=== PATIENT | female | born 1995 | race Hispanic/Latino ===

== ENCOUNTER 2024-12-23 07:37 | Inpatient (IN) | payer OTHER, SELFPAY ==
[2024-12-23] VITALS (59 sets, daily range): BP systolic 93–216; BP diastolic 52–142; PULSE 68–111; RESP 14–18; TEMP 36.6–37.4; O2SAT 97–100; BMI 33.1
[2024-12-23 07:51] LABS: ROM Internal Control Test YES-OK TO RESULT pt. (Internal QC)
[2024-12-23 07:52] LABS: ROM Patient Test POSITIVE (Negative); Record Kit Lot#, ROM+ K3358
[2024-12-23] MEDS: Lactated Ringers 1,000 ML 50 ML IV (08:25)
--- NOTE | 2024-12-23 08:35 | HP.PCM.OB_ITS ---
HPI - General General Date of Admission: 12/23/24 HPI Narrative ABDIAZIZ CINTRON, is a 29 F @ 40.1 weeks who presents c/o SROM and Ctx- made cervical change during observation from 1.5-3cm- felt fluid leaking around 7:05 am- rom plus was positive for rupture. PFSH PFSH Home Medications ?Medication ?Instructions ?Recorded ?Last Taken ?Type vit no.95-ferrous 1 tab PO DAILY 12/23/24 Unk nown History fumarate 28 mg-folic acid 800 mcg tablet () Allergy/AdvReac Type Severity Reaction Status Date / Time No Known Allergies Allergy Verified 12/23/24 05:20 Social History Smoking Status: Never smoker History Elective abortions Hx Para 0 Spontaneous abortions Hx # Term Pregnancies Ectopic pregnancies Hx # Pregnancies Multiple births # of living children NST FHR Rate Baby A Baseline: 135 Variability:: Moderate Accelerations:: 15 x 15 Decelerations:: None NST Reactive:: Yes FHR Category:: Category I Uterine Activity:: 2-5 min Vital Signs Vital Signs Vital Signs: 12/23/24 05:18 12/23/24 05:18 12/23/24 05:21 Temperature Temperature Source Temporal Pulse Rate 91 Respiratory Rate Blood Pressure BP Systolic BP Diastolic Pulse Ox 99 12/23/24 05:21 12/23/24 05:21 12/23/24 05:22 Temperature 98.5 F Temperature Source Pulse Rate Respiratory Rate 14 Blood Pressure 110/66 BP Systolic 110 BP Diastolic 66 Pulse Ox 12/23/24 05:22 12/23/24 07:18 12/23/24 07:18 Temperature Temperature Source Pulse Rate 91 87 Respiratory Rate Blood Pressure 145/67 H BP Systolic 145 BP Diastolic 67 Pulse Ox 12/23/24 07:18 Temperature Temperature Source Pulse Rate Respiratory Rate Blood Pressure BP Systolic BP Diastolic Pulse Ox 98 Weight Weight: 67.132 kg Body Mass Index (BMI) 33.1 Physical Exam Narrative VE: 3/70/-3 forebag ruptured- light meconium Const alert and oriented x3 General Appearance: cooperative HEENT normocephalic GI GI Narrative: Gravid, non tender to palpation. OB / External & Speculum: external exam normal Extremity normal to inspection Skin no rashes or lesions noted Neuro oriented x3 and CN's II-XII intact bilaterally Psych Appearance: grossly normal Labs Labs Labs: No Data to Display Assessment & Plan (1) 40 weeks gestation of : (2) SROM (spontaneous rupture of membranes): (3) Meconium in amniotic fluid affecting management of mother in third trimest er: PLAN: Plan Admit to L&D Montior FHR/TOCO Epidural if requested for pain- planning unmedicated Monitor VS Anticipate meconium fluid- notify peds for delivery pitocin if indicated
[2024-12-23 08:56] LABS: Absolute Lymphocyte Count 2.76 X10^3/uL (0.83-4.51); Absolute Neutrophil Count 9.1 X10^3/uL (2.0-7.7); Basophil# 0.05 X10^3/uL; Basophil% 0.4 % (0-1); Eosinophil# 0.43 X10^3/uL; Eosinophils% 3.4 % (0-5); Hematocrit 37.6 % (37-47); Hemoglobin 12.8 g/dL (12.0-15.0); Lymphocyte # 2.76 X10^3/ul (0.83-4.51); Lymphocyte % 21.6 % (19-41); Mean Corpuscular Hgb 30.3 pg (27.0-32.0); Mean Corpuscular Volume 88.9 fL (81-99); Mean Platelet Vol. 9.3 fl (6.2-12.0); Monocyte# 0.41 X10^3/uL; Monocyte% 3.2 % (0-10); NRBC Flagged by Analyzer 0 % (0-5); Neutrophil # 9.06 X10^3/uL (2.7-7.7); Platelet Count 240 K/mm3 (150-450); RBC Distribution Width CV 13.6 % (11.6-14.6); RBC Distribution Width SD 44.2 fl (35.1-43.9); Red Blood Count 4.23 M/mm3 (4.2-5.4); White Blood Count 12.8 K/mm3 (4.4-11.0)
[2024-12-23] MEDS: Oxytocin 15 Units/NS 250ml 15 UNITS/250 ML IV.SOLN 2 UNITS IV (09:49)
[2024-12-23 10:01] LABS: Syphilis Antibodies Nonreactive (Nonreactive)
[2024-12-23] MEDS: Lactated Ringers 1,000 ML 999 ML IV (11:59)
[2024-12-23] MEDS: fentaNYL-bupivacaine (epidural) 100 ML BAG EPIDURAL (12:46)
--- NOTE | 2024-12-23 16:25 | OB.VAGDELI_ITS ---
Assessment & Plan (1) (normal spontaneous vaginal delivery): (2) Meconium stained amniotic fluid, delivered, current hospitalization: (3) First degree perineal laceration: (4) Lactating mother: Maternal Data Information CARL Calculator Estimated Delivery Date Method Current WG Current Estimate 12/22/24 Manual 40w 1d Final CARL: 12/22/24 Vaginal Delivery Maternal Presentation Maternal Presentation: Active Labor and Spontaneous Rupture of Membranes Vaginal Delivery Information Procedure Performed: Spontaneous Vaginal Delivery Date of Procedure: 12/23/24 Pre-Procedure Diagnosis: Active labor at term, Spontaneous Rupture of Membranes Post-Procedure Diagnosis: , meconium stained fluid, 1st degree perineal laceration Type of anesthesia: Epidural Estimated Blood Loss: 500ml Time of Delivery: 15:54 Findings Description of procedure: Progressed to complete with urge to push. Epidural for pain management. of viable male infant over first degree perineal laceration . APGARS 8,9 respectively. head delivered with body immediately forthcoming. Placed on maternal abdomen, strong cry. Mouth and nares suctioned for secretions, MEC, merchandise planner and respiratory team present at bedside for . Pitocin started for active 3rd stage management. Cord doubly clamped and cut by FOB after pulsations ceased, delayed cord clamping. Placenta delivered intact via dash, 3 vessel cord intact. Perineum inspected and revealed first degree perineal laceration. Repaired with 3.0 vicryl rapide and epidural Fundus firm and hemostasis achieved. EBL 500ml. Mom and baby stable, planning to breastfeed. Family bonding well. notified of delivery. Moroccan speaking, family at bedside for interpretor per patient request Presentation: Vertex Amniotic Membrane Rupture Type: Spontaneous (AROM of forebag, MEC) Amniotic Fluid Description: Moderate meconium Placental Delivery Description: Spontaneous Placenta Disposition: Sent to Pathology Specimen collected: No Cord Vessel Description: 3 Vessels Cord Entanglement: None A Gender: Male (1 minute): 8 (5 minute): 9 Delayed Cord Clamping: Yes Psych Therapist allergy and immunology chief: No Post Vaginal Deli Medications given after delivery: IV Pitocin Episiotomy Description: None Laceration: Perineal Extension/lac and 1st degree Complication Complications: No
[2024-12-23] MEDS: Oxytocin 15 Units/NS 250ml 15 UNITS/250 ML IV.SOLN 83 UNITS IV (16:34)
--- NOTE | 2024-12-23 16:54 | PLAC_PTH ---
PATIENT: ABDIAZIZ DURAN LOC: [facility] U#:[id number] AGE/SX: 29/F ROOM: WP015 RE12/23/[address]: Hortencia Osuna CNM : 1995 BED: 1 DIS: 12/24/2024 SPEC #: [id number] RECD: 12/23/24 17:55 STATUS: ROMA REAranza #: [id number] BETSY: 12/23/24 16:[address]: Hortencia Osuna DEPT: SURGICAL PATHOLOGY RECD BY: Luis A Wood ENTERED: 12/26/24 08:38 SP TYPE: PLACENTA OTHR DR: No Primary Care Phys Tissues: A - Placenta, NOS Procedures: Surgery Specimen Level V HEADER OPERATION: Delivery PRE-OP DIAGNOSIS: Meconium stained fluid, marginal insertion TISSUE SUBMITTED: A- Placenta MICROSCOPIC DIAGNOSIS A. Placenta, vaginal delivery: * Marginally inserted, furcated, and trivascular umbilical cord without active inflammation * Marginally inserted membranes with increased number of pigmented macrophages, consistent with meconium and without active inflammation * Mature (third trimester) placenta without active inflammation and with increased number of pigmented macrophages in the surface, consistent with meconium, and with subchorionic fibrin deposition involving ~15% of the surface MICROSCOPIC DESCRIPTION Slides are reviewed. GROSS DESCRIPTION A.? Received in formalin labeled with the patient's name and date of is a 388 g, 17.5 x 15.8 x 2.8 cm irregular placental disc.? The membranes are thompson-green and markedly edematous, inserting marginally with a point of rupture located approximately 6.5 cm from the disc edge.? The trivascular and focally compressed umbilical cord measures 26.7 cm in length x 1.0-1.5 cm in diameter and has a marginal, furcate insertion.? The surface is blue-green and edematous with focal subchorionic fibrin (<15%).? The maternal surface is red to light brown with a focally torn and frayed appearance and loosely adherent blood clot. Sectioning reveals red violaceous parenchyma with focal fibrin and hemorrhage (approximately 15%). Associate Loan Officer sections are submitted as follows: A1: Membrane rollA2: Umbilical cordA3: PlacentaA4: Placenta with fibrin SC 12/26/2024 CPT:34531
[2024-12-23 17:57] LABS: Pathology Specimen OB SEE PATHOLOGY REPORT
--- NOTE | 2024-12-23 18:58 | NURSING ---
epidural catheter removed and blue tip intact
[2024-12-24] VITALS (9 sets, daily range): BP systolic 103–120; BP diastolic 56–74; PULSE 67–95; RESP 15–16; TEMP 36.4–36.9; O2SAT 92–99
[2024-12-24 06:37] LABS: Absolute Lymphocyte Count 3.18 X10^3/uL (0.83-4.51); Basophil# 0.05 X10^3/uL; Basophil% 0.3 % (0-1); Eosinophil# 0.19 X10^3/uL; Hematocrit 35.3 % (37-47); Hemoglobin 12.2 g/dL (12.0-15.0); Lymphocyte # 3.18 X10^3/ul (0.83-4.51); Lymphocyte % 17.5 % (19-41); Mean Corp Hgb Conc 34.6 g/dL (32-36); Mean Corpuscular Hgb 30.7 pg (27.0-32.0); Mean Corpuscular Volume 88.7 fL (81-99); Mean Platelet Vol. 8.7 fl (6.2-12.0); Monocyte# 0.64 X10^3/uL; Monocyte% 3.5 % (0-10); NRBC Flagged by Analyzer 0 % (0-5); Neutrophil # 13.99 X10^3/uL (2.7-7.7); Neutrophil % 77.2 % (47-70); Platelet Count 214 K/mm3 (150-450); RBC Distribution Width CV 13.5 % (11.6-14.6); RBC Distribution Width SD 44.2 fl (35.1-43.9); Red Blood Count 3.98 M/mm3 (4.2-5.4); White Blood Count 18.1 K/mm3 (4.4-11.0)
--- NOTE | 2024-12-24 10:25 | NURSING ---
while using automotive parts counter person line discussed and maternal self care, procedures to be done today, , follow up ped picked, pt wants MMR and Nexplanon, pt desires to go home tonight after testing. Yoder teaching done- bath, cord care, temp.: spent time on certificate clarifying questions, into see - talked about tongue tie and sore nipple.
--- NOTE | 2024-12-24 11:44 | NURSING ---
linseed oil refiner service used for lunch and dinner order, checking certificate, and explaining MMR immunization
[2024-12-24] MEDS: MEASLES,MUMPS,RUBELLA VACC/PF 0.5 ML SC (12:02)
--- NOTE | 2024-12-24 12:02 | PCM.PN.OB ---
Subjective Subjective Doing well per patient and nursing staff. Ambulating and taking PO without difficulty. Voiding and passing flatus. Pain controlled. , services for assistance. Denies headache, visual changes, chest pain, shortness of breath, leg pain or increased bleeding. Lochia normal. Objective Data Objective Data Vital Signs: Vital Signs Temp Pulse Resp BP Pulse Ox O2 Del Method 98.2 F 93 16 120/74 92 Room Air 12/24/24 08:55 12/24/24 11:59 12/24/24 08:55 12/24/24 11:59 12/24/24 11:59 12/24/24 08:55 Oxygen Delivery Method Room Air Weight: 148 lb Body Mass Index (BMI) 33.1 Intake & Output: Intake and Output for Last 24 Hours 12/22/24 12/23/24 12/24/24 23:59 23:59 23:59 Intake Total 2443.64 / 2443.64 Output Total 1900 / 1900 Balance 543.64 / 543.64 Lab / Micro Data 12/24/24 06:30 Labs: Laboratory Results - last 24 hr 12/24/24 06:30: WBC 18.1 H, RBC 3.98 L, Hgb 12.2, Hct 35.3 L, MCV 88.7, MCH 30.7, MCHC 34.6, RDW Std Deviation 44.2 H, RDW Coeff of Corie 13.5, Plt Count 214, MPV 8.7, Immature Gran % (Auto) 0.500, Neut % (Auto) 77.2 H, Lymph % (Auto) 17.5 L, [place] % (Auto) 3.5, Eos % (Auto) 1.0, Baso % (Auto) 0.3, Absolute Neuts (auto) 14.0 H, Absolute Lymphs (auto) 3.18, Nucleated RBC % 0 ROS Constitutional Constitutional: Reports systems reviewed and no addt'l complaints, except as documented; Denies headache(s) Eyes Eyes: Denies acute decrease in peripheral vision, blurry vision or change in vision ENT HEENT: Reports systems reviewed and no addt'l complaints, except as documented Cardiovascular Cardiovascular: Denies chest pain or dizziness Respiratory/Chest Respiratory/Chest: Denies cough, dyspnea, dyspnea on exertion, shortness of breath at rest or shortness of breath with exertion Gastrointestinal Gastrointestinal: Denies abdominal pain, diarrhea, nausea or vomiting Genitourinary Genitourinary: Denies abdominal discomfort Musculoskeletal Musculoskeletal: Denies limited range of motion Integumentary Integumentary: Reports systems reviewed and no addt'l complaints, except as documented Neurologic Neurologic: Reports systems reviewed and no addt'l complaints, except as documented Psychiatric Psychiatric: Reports systems reviewed and no addt'l complaints, except as documented Endocrine Endocrinology: Reports systems reviewed and no addt'l complaints, except as documented Hematologic/Lymphatic Hematologic/Lymphatic: Reports systems reviewed and no addt'l complaints, except as documented Allergic/Immunologic Allergic/Immunologic: Reports systems reviewed and no addt'l complaints, except as documented Physical Exam Const alert and oriented x3 General Appearance: cooperative Orientation / Consciousness: awake, oriented to person, oriented to place and oriented to time Exam Limitations: no limitations HEENT normocephalic Head and Scalp: normal to inspection, normocephalic and atraumatic Face and Sinus: normal facial exam Eyes General Eye: normal appearance of both eyes Neck full ROM Chest Chest: symmetrical chest wall rise Resp normal respiratory effort and normal air movement Auscultation: clear to auscultation bilaterally Cardio regular rate, regular rhythm, S1 normal heart sound, S2 normal heart sound, no murmurs, no rub, no gallops and no clicks GI normal to inspection, nondistended, normoactive bowel sounds and non-tender GI Narrative: Fundus firm 2 below U appearance of the vagina normal Narrative: Normal lochia rubra Bladder / Kidney Exam: no CVA tenderness Back/Spine normal ROM Extremity normal to inspection and full ROM Skin no rashes or lesions noted Neuro oriented x3, CN's II-XII intact bilaterally and moves all extremities Sensorium / Orientation: awake, alert and oriented to person Motor Exam: clonus absent Deep Tendon Reflexes: Rt Patellar (L4): 2+ and Lt Patellar (L4): 2+ Assessment & Plan (1) Lactating mother: (2) First degree perineal laceration: (3) Meconium stained amniotic fluid, delivered, current hospitalization: (4) (normal spontaneous vaginal delivery): (5) Insertion of Nexplanon: PLAN: Plan 1) Routine care, PPD #1 2) Vitals signs stable 3) Pain controlled 4) , services PRN 5) D/C home 6) Follow up in 2 weeks and 6 weeks 7) Nexplanon placed
[2024-12-24] MEDS: Etonogestrel 68 MG IMPLANT SC (12:12)
[2024-12-24] MEDS: Lidocaine 1% (30 ml sdv) 30 ML Vial INFILT (12:15)
--- NOTE | 2024-12-24 12:19 | NURSING ---
hourly sign language interpreter used for nexplanon placement
--- NOTE | 2024-12-24 12:36 | PCM.DC.SUM ---
Providers Date of Admission: 12/23/24 Primary Care Physician: Angeli Primary Care Phys Reason For Visit: VAGINAL Diagnosis Discharge Diagnosis (1) Lactating mother: Status: Acute Code(s): Z39.1 - Encounter for care and examination of lactating mother (2) First degree perineal laceration: Status: Acute Code(s): O70.0 - First degree perineal laceration during delivery (3) Meconium stained amniotic fluid, delivered, current hospitalization: Status: Acute Code(s): O77.0 - Labor and delivery complicated by meconium in amniotic fluid (4) (normal spontaneous vaginal delivery): Status: Acute Code(s): O80 - Encounter for full-term uncomplicated delivery (5) Insertion of Nexplanon: Status: Acute Code(s): Z30.017 - Encounter for initial prescription of implantable subdermal contraceptive Plan 1) Routine care, PPD #1 2) Vitals signs stable 3) Pain controlled 4) , services PRN 5) D/C home 6) Follow up in 2 weeks and 6 weeks 7) Nexplanon placed Medications at Discharge Home Medications vit no.95-ferrous fumarate 28 mg-folic acid 800 mcg tablet () 1 tab PO DAILY 12/23/24 acetaminophen 500 mg tablet 1,000 mg (2 x 500 mg) PO Q6H PRN PRN Pain 1-10 Or Fever #0 tabs 12/24/24 ibuprofen 600 mg tablet 600 mg PO Q6H PRN PRN Pain Score 1-10 #0 tabs 12/24/24 Weight / BMI Weight Weight: 148 lb Body Mass Index (BMI) 33.1 ABG / Lab / Microbiology Data 12/24/24 06:30 Laboratory: Laboratory Results - last 24 hr 12/24/24 06:30: WBC 18.1 H, RBC 3.98 L, Hgb 12.2, Hct 35.3 L, MCV 88.7, MCH 30.7, MCHC 34.6, RDW Std Deviation 44.2 H, RDW Coeff of Corie 13.5, Plt Count 214, MPV 8.7, Immature Gran % (Auto) 0.500, Neut % (Auto) 77.2 H, Lymph % (Auto) 17.5 L, [place] % (Auto) 3.5, Eos % (Auto) 1.0, Baso % (Auto) 0.3, Absolute Neuts (auto) 14.0 H, Absolute Lymphs (auto) 3.18, Nucleated RBC % 0 D/C Instructions Discharge Diet: No restrictions Discharge Activity: Return to Normal Activity, May Drive, May Shower and May Take a Tub Bath May resume sexual activity in: 6 weeks Weight Bearing Status: Full weight bearing Call your doctor if you observe: Fever of 101 or Higher, Inability to urinate, Using more than 1 pad per hour, Shortness of breath, Chest pain, Increased palpitations (irregular heartbeat), Calf discomfort and Uncontrolled pain DC O2, CPAP, BIPAP Needs Home O2 Discharge instructions: No Please Follow Up With: Hortencia Osuna CNM When: 2 week virtual visit and 6 week visit Meaningful Use Info Meaningful Use Meaningful Use Diagnoses (Choose all that apply): None applicable Ischemic Stroke Statin Dosing Therapy Reference: STATIN DOSE THERAPY REFERENCE: * Patients > 75 years receive moderate or high dose statin therapy. * Patients 75 years or YOUNGER should receive HIGH intensity statin dose unless contraindicated. You will be required to document reason for non-treatment if statin daily dose does not meet guidelines. HIGH DOSE STATIN THERAPY DAILY Atorvastatin > than or = to 40 mg Rosuvastatin > than or = to 20 mg Amlodipine + Atorvastatin > than or = to 2.5/40 mg Ezetimibe + Simvastatin 10/80 mg Simvastatin 80mg Discharge Plan Admission Admit Date/Time: 12/23/24 07:37 Primary Reason for Your Visit: Vaginal Delivery Attending Provider: Hortencia Osuna Primary Care Provider: Care Physician,No Primary Discharge Orders/Prescriptions Prescriptions: New acetaminophen 500 mg Tablet 1,000 mg PO Q6H PRN PRN (Reason: Pain 1-10 Or Fever) Qty: 0 0RF ibuprofen 600 mg Tablet 600 mg PO Q6H PRN PRN (Reason: Pain Score 1-10) Qty: 0 0RF Continued PNV cmb#95-ferrous fumarate-FA [] 28 mg iron- 800 mcg tablet 1 tab PO DAILY Referrals / Follow Up: Care Physician,No Primary [Primary Care Provider] - Disposition Disposition (needs filled in before D/C Order can be placed): Home, Self Care
[2024-12-24] MEDS: Acetaminophen 500 MG Tablet 1000 MG PO (17:01)
== END 2024-12-24 17:15 | disposition home or self-care (01) | DRG 807 ==
LOC: WPOUT 07:42 → WP 07:42
PROVIDERS: Obstetrics & Gynecology; Admitting Provider Advanced Practice Midwife; Referring Provider Advanced Practice Midwife; Visit Provider Advanced Practice Midwife
DX: O42.02 Full-term premature rupture of membranes, onset of labor within 24 hours of rupture (principal); Z37.0 Single live birth; O70.0 First degree perineal laceration during delivery; Z23 Encounter for immunization; O77.0 Labor and delivery complicated by meconium in amniotic fluid; Z3A.40 40 weeks gestation of pregnancy
CPT/HCPCS: 59025; 59050; 84112; 85025; 86780; 86850; 86900; 86901; 88307; 99221; G0378